=== PATIENT | female | born 1960 | race Caucasian/White ===

== ENCOUNTER 2018-07-02 16:45 | Emergency (ER) | payer MEDICARE ==
[~2018-07-02] VITALS: Ht 167.6 cm; Wt 108.4 kg
[~2018-07-02 16:45] MED LIST: ALLOPURINOL300 MG PO; CARVEDILOL12.5 MG PO; CITALOPRAM HBR40 MG OP; CLONAZEPAM1 MG PO; COUMADIN3 MG PO; FUROSEMIDE40 MG PO; GABAPENTIN300 MG PO; LANTUS100 UNITS/ SQ; NORCO 10MG-325MG1 EA PO; PRAVASTATIN SOD40 MG PO; TRAZODONE HCL50 MG PO
[2018-07-02 17:58] LABS: CLARITY,URINE SL CLOUDY (CLEAR); COLOR,URINE YELLOW (YELLOW)
[2018-07-02 17:59] LABS: BILIRUBIN,URINE NEGATIVE (NEGATIVE); KETONES,URINE NEGATIVE (NEGATIVE); LEUKOCYTE ESTERASE ,URINE 1+ (NEGATIVE); NITRITE,URINE NEGATIVE (NEGATIVE); PROTEIN,URINE DIPSTICK TRACE (NEGATIVE); URINE UROBILINOGEN 0.2 mg/dL (0.2 - 1)
[2018-07-02 18:08] LABS: AMORPHOUS SEDIMENT,URINE FEW (FEW); BACTERIA,URINE MANY /HPF
== END 2018-07-02 19:15 | disposition home or self-care (01) ==
LOC: ER 16:45
DX: R30.0 Dysuria (principal); R10.2 Pelvic and perineal pain; M54.5 Low back pain
CPT/HCPCS: 51700; 81001; 99283